=== PATIENT | male | born 1945 | race Two or more races ===

== ENCOUNTER 2019-07-27 08:03 | Day surgery (SDC) | payer MEDICARE, MEDICAID ==
[2019-07-27] VITALS (7 sets, daily range): BP systolic 117–144; BP diastolic 70–80
[~2019-07-27] VITALS: Ht 172.7 cm; Wt 90.7 kg
--- NOTE | 2019-07-27 07:34 | Anethesia Preoperative Eval ---
Anesthesia Pre-op PMH/ROS General Date of Evaluation: Jul 27, 2019 Time of Evaluation: 07:32 Anesthesiologist: erasmo ASA Score: ASA 3 Mallampati Score Class I : Soft palate, uvula, fauces, pillars visible Class II: Soft palate, uvula, fauces visible Class III: Soft palate, base of uvula visible Class IV: Only hard plate visible Mallampati Classification: Class II Surgeon: astrid Diagnosis: gerd, abdom inal pain Surgical Procedure: egd/colonoscopy Social History: smoking - former smoker Family History: no anesthesia problems Allergies: Coded Allergies: No Known Allergies (Unverified , 06/07/14) Medications: see eMAR Patient NPO?: Yes Past Medical History Gastrointestinal/Genitourinary: Reports: GERD, other - diverticulosis, kidney cyst removal HEENT: Reports: cataract (L), cataract (R) Other: obesity PSxH Narrative: cataract sx, hernia repair, kidney sx Anesthesia Pre-op Phys. Exam Physician Exam Last Vital Signs Date Time Temp Pulse Resp B/P (MAP) Pulse Ox O2 Delivery O2 Flow Rate FiO2 07/27/19 08:58 97.6 84 18 144/80 98 Room Air Constitutional: NAD Neurologic: CN 2-12 intact Cardiovascular: RRR Respiratory: CTA Gastrointestinal: S/NT/ND Airway Exam Mallampati Score: Class II MO: limited Neck: flexible TMD: 2fb ROM: limited Anesthesia Pre-op A/P Risk Assessment & Plan Assessment: asa3 Plan: mac Status Change Before Surgery: No Pre-Antibiotics Drug: Amelie Hager MD Jul 27, 2019 07:34
[~2019-07-27 08:03] MED LIST: ASPIR 8181 MG ORAL; Atropine Inj 1mg/10ml Syr IV PRN; DiphenhydrAMINE 50mg/ml Inj IVP PRN; FISH OIL CAP1000 MG ORAL; LR 1000ml 1,000 ML IVLG SCH; Midazolam 2mg/2ml Inj IVP PRN; [UNRECOGNIZED DRUG - REMARK] PO; fentaNYL 100 mcg/2 mL IV PRN
--- NOTE | 2019-07-27 08:08 | Short Stay Surgery H&P ---
History of Present Illness History of Present Illness Chief Complaint History of colon polyp for follow up/GERDs and abdominal pains HPI Theresa Munoz is a 73 year old male who was admitted on for Abdominal Pain, GERD and colonoscopy for history of colon polyps Patient History Allergies: Coded Allergies: No Known Allergies (Unverified , 06/07/14) PAST MEDICAL HISTORY: (1) Hypertension (2) Hyperlipidemia (3) Diverticulosis (4) History of inguinal hernia repair (5) Prostatic hypertrophy Medication History Scheduled Aspirin* (Aspir 81*), 81 MG ORAL DAILY, (Reported) Fish Oil (Fish Oil 1,000 mg Capsule), 1,000 MG ORAL DAILY, (Reported) [prostate pill], 1 TAB PO DAILY, (Reported) Review of Systems Cardiovascular: Reports: hypertension Respiratory: Reports: no symptoms Skeletal: Reports: no symptoms Gastrointestinal: Reports: gastro esophageal reflux disease Genitourinary: Reports: BPH Neurologic: Reports: no symptoms Endocrine: Reports: no symptoms Hematologic: Reports: no symptoms Physical Exam Skin: normal HENT: normal Heart: normal Lungs: normal Abdomen: abnormal Extremities: normal Plan Plan of Care Upper and lower GI endoscopy Preop Interventions None. Summary of Findings See the reports Attestation Are the patient's medical conditions optimized for surgery? Attestation Response: yes Antoni Sheets MD Jul 27, 2019 08:08
--- NOTE | 2019-07-27 08:09 | Pre-Procedure Note/Attestation ---
Pre-Procedure Note/Attestation Complete Prior to Procedure Planned Procedure: left Procedure Narrative: Examination of the upper and the lower GI tract via endoscopy Indications for Procedure Pre-Operative Diagnosis: R/O colon polyps/gastritis/hemorrhoids. Attestation I attest that I discussed the nature of the procedure; its benefits; risks and complications; and alternatives (and the risks and benefits of such alternatives ), prior to the procedure, with the patient (or the patient's legal care support representative). I attest that, if there was a reasonable possibility of needing a blood transfusion, the patient (or the patient's legal care support representative) was given the [place] Department [employer] standardized written summary, pursuant to the [place] Blood Safety Act ([place] Health and Safety Code # 1645, as amended). I attest that I re-evaluated the patient just prior to the surgery and that there has been no change in the patient's H&P, except as documented below: Antoni Sheets MD Jul 27, 2019 08:09
[2019-07-27] MEDS ORDERED: [UNRECOGNIZED DRUG - REMARK] (08:54)
[2019-07-27] MEDS ORDERED: [UNRECOGNIZED DRUG - REMARK] PO (08:54)
[2019-07-27] MEDS ORDERED: cholesterol pill PO (08:55)
[2019-07-27] MEDS ORDERED: [UNRECOGNIZED DRUG - REMARK] PO (08:57)
[2019-07-27] MEDS ORDERED: LR 1000ml ONE (09:00)
[2019-07-27] MEDS ORDERED: Propofol 200mg/20ml IV ONE (09:00)
[2019-07-27] MEDS ORDERED: Lidocaine 1% MPF 10mg/ml 5ml ONE (09:00)
--- NOTE | 2019-07-27 09:19 | Discharge Instructions ---
Discharge Instructions Discharge Instructions Follow up with: Make appointment to see doctor after 2 weeks For Congestive Heart Failure Reminder Report to your physician any weight gain of 5 pounds or more in one week. Antoni Sheets MD Jul 27, 2019 09:19
--- NOTE | 2019-07-27 09:50 | Endoscopy Procedure Note ---
Endoscopy Procedure Note General Indication for Procedure: Abdominal pains/GERD/history of colon polyps Procedures Performed: EGD - Hiatal Hernia otherwise normal upper GI. Endoscopy. Biopsy was done per random from gastric body., colonoscopy - Colonic diverticulosis otherwise normal total colonoscopy noted upto to the base of the cecum. Specimen: yes Pt Tolerated Procedure Well: Yes Estimated Blood Loss: none Anesthesia Anesthesiologist: Dr. Johnson Anesthesia: moderate sedation Medications Medication Given: see anesthesia record Inserted Devices Implant(s) used?: No Quality Quality of Bowel Preparation: Excellent Was there any complications?: No GI Core Measures 50 yrs or older w/o bx or poly: Yes 10yrs. F/U recommended: Yes 18 years or older w/prev. colo: Yes <3yrs. since last colonoscopy: No Med reason:<3 yrs.: System Reason:<3 yrs.: Last colonoscopy >= to 3yrs: Yes Antoni Sheets MD Jul 27, 2019 09:50
--- NOTE | 2019-07-27 10:31 | Immediate Post-Op Evaluation ---
Immediate Post-Op Evalulation Immediate Post-Op Evalulation Procedure: EGD/colonoscopy with biopsy Date of Evaluation: Jul 27, 2019 Time of Evaluation: 10:07 IV Fluids: 700ml lr Blood Products: none Estimated Blood Loss: negligible Blood Pressure Systolic: 128 Blood Pressure Diastolic: 70 Pulse Rate: 64 Respiratory Rate: 18 O2 Sat by Pulse Oximetry: 99 Temperature (Fahrenheit): 97.2 Pain Score (1-10): 0 Nausea: No Vomiting: No Complications none Patient Status: awake, reacts Hydration Status: adequate Drug: Amelie Hager MD Jul 27, 2019 10:30
--- NOTE | 2019-07-27 10:33 | 48 Hour Post Anesthesia Eval ---
Post Anesthesia Evaluation Procedure: EGD/colonoscopy with biopsy Date of Evaluation: Jul 27, 2019 Time of Evaluation: 10:09 Blood Pressure Systolic: 130 0: 72 Pulse Rate: 64 Respiratory Rate: 18 Temperature (Fahrenheit): 97.2 O2 Sat by Pulse Oximetry: 99 Airway: patent Nausea: No Vomiting: No Pain Intensity: 0 Hydration Status: adequate Cardiopulmonary Status: stable Mental Status/LOC: patient returned to baseline Post-Anesthesia Complications: none Follow-up care needed: N/A Amelie Johnson MD Jul 27, 2019 10:33
--- NOTE | 2019-07-27 16:45 | Operative Note - Dictated ---
DATE OF OPERATION: 07/27/2019 SURGEON: Antoni Sheets M.D. PROCEDURE: Esophagogastroduodenoscopy with biopsy. PREOPERATIVE DIAGNOSIS: Abdominal pain, history of gastroesophageal reflux, rule out peptic ulcer disease. POSTOPERATIVE DIAGNOSIS: Evidence of hiatal hernia, otherwise completely normal upper GI endoscopy. Biopsy was taken per random from gastric body. MEDICATION USED: Per Dr. Coe, anesthesiologist. INSTRUMENT: GIF Olympus upper GI video endoscope. DESCRIPTION OF PROCEDURE: The patient after arriving in the endoscopy unit, was told about risks and benefits of the procedure, which he accepted and signed the informed consent. At this time, he was put in the left lateral decubitus position. After adequate IV sedation, the scope was gently passed through the cricopharyngeal area, was lodged into the upper esophagus gradually advanced towards gastroesophageal junction. The entire length of esophagus was normal and gastroesophageal junction was seen at the level of 35 centimeter from incisors. The GE junction, however, looked normal. No evidence of Hammond's. However, there was evidence of mild to moderate-sized hiatal hernia. The scope was then guided into the stomach. Gastric cavity was distended and gradually the areas of the fundus and the body and the antrum were looked at and they revealed basically normal with normal mucosal coverage and no ulcers, tumors, polyps, bleeding site was noted. A retroflexion maneuver was also applied and the area of the gastroesophageal junction was examined in a closer fashion, which revealed normal findings. At this time, the scope was gradually advanced into the body of the stomach. Random biopsy was obtained from gastric body over the greater curvature and subsequently the scope was gradually advanced towards the antrum, pylorus, first and second portion of duodenum were also examined that they looked also normal. Finally, scope was pulled out and the procedure was terminated. The patient tolerated the procedure well. Antoni Sheets M.D. DR: ROSALINDA JOB#: [id number] CC:
--- NOTE | 2019-07-27 16:45 | Procedure Note ---
DATE OF PROCEDURE: 07/27/2019 SURGEON: Antoni Sheets M.D. PROCEDURE: Total colonoscopy. PREOPERATIVE DIAGNOSES: Abdominal pain and history of colon polyps, screening colon. POSTOPERATIVE DIAGNOSIS: Evidence of diverticulosis of the colon, otherwise completely normal up to the base of the cecum as examined. MEDICATION USED: Per Saravanan anesthesiologist. INSTRUMENT: GIF Olympus video colonoscope. DESCRIPTION OF PROCEDURE: The patient after arriving endoscopy unit, was told about risks and benefits of the procedure which he accepted and signed informed consent. At this time, he was put in the left lateral decubitus position. After adequate IV sedation, the scope was gently passed through the anal area and careful examination of this section along with performance of retroflexion maneuver did not reveal any major hemorrhoid or any rectal pathology. Subsequently scope was passed through highly redundant left colon and visualizing numerous diverticular lesions in this area. However, there was no any evidence of inflammatory process, ulceration, stricture, tumors, and polyps. Gradually, the scope reached to the splenic flexure. From there, it was advanced into the transverse colon, hepatic flexure, and it reached to the right side of the colon all the way to the base of the cecum. All these areas however remained to be completely normal and the base of the cecum were was also visualized. There was no any evidence of tumors or polyps in this area either. Finally within 5 to 6 minutes, the scope was gradually pulled out and re-examination of the colon did not reveal any other abnormalities except what is stated earlier. The colon cleanup was adequate and excellent. The patient tolerated the procedure well and left the endoscopy room in a good condition. Antoni Sheets M.D. DR: Danis JOB#: [id number] CC:
== END 2019-07-27 10:40 | disposition home or self-care (01) ==
LOC: SUR 08:03
DX: R10.9 Unspecified abdominal pain (principal); Z86.010 Personal history of colon polyps; K57.90 Diverticulosis of intestine, part unspecified, without perforation or abscess without bleeding; K44.9 Diaphragmatic hernia without obstruction or gangrene; I10 Essential (primary) hypertension; E78.5 Hyperlipidemia, unspecified; Z79.82 Long term (current) use of aspirin; K21.9 Gastro-esophageal reflux disease without esophagitis; K29.50 Unspecified chronic gastritis without bleeding
CPT/HCPCS: 43239; 45378; J2704; J7120; 94003; 94150